=== PATIENT | male | born 1955 | race Caucasian/White ===

== ENCOUNTER 2019-02-01 08:01 | Day surgery (SDC) | payer BC ==
[~2019-02-01 08:01] MED LIST: LIDOCAINE 2% (SDV) 5 ML INJ
[2019-02-01] MEDS ORDERED: PROPOFOL 20 ML (10:08)
== END 2019-02-01 11:57 | disposition home or self-care (01) ==
LOC: GIL 08:01
DX: R19.7 Diarrhea, unspecified (principal); K64.8 Other hemorrhoids; K62.89 Other specified diseases of anus and rectum; K20.9 Esophagitis, unspecified; K29.50 Unspecified chronic gastritis without bleeding
CPT/HCPCS: 43239; 88305; 88312